=== PATIENT | male | born 1955 | race Caucasian/White ===

== ENCOUNTER 2022-01-28 07:35 | Outpatient (CLI) | payer BC, OTHER | END 2022-01-28 07:36 | disposition home or self-care (01) | LOC: CSHCT 07:35 | PROVIDERS: ATTEND Surgery | DX: K43.9 Ventral hernia without obstruction or gangrene (principal); R91.1 Solitary pulmonary nodule; K57.90 Diverticulosis of intestine, part unspecified, without perforation or abscess without bleeding | CPT/HCPCS: 74176; 74177 ==

== ENCOUNTER 2022-02-15 10:52 | Outpatient (CLI) | payer BC ==
[2022-02-15 13:26] LABS: Anion Gap 15 mmol/L (10-20); BUN (Urea Nitrogen) 17 mg/dL (8.4-25.7); Calc. Creatinine Clearance 0 mL/min (70-130); Calcium 9.4 mg/dL (7.8-10.44); Carbon Dioxide 26 mmol/L (23-31); Chloride 104 mmol/L (98-107); Estimated GFR 68; Glucose 88 mg/dL (80-115); Potassium 4.5 mmol/L (3.5-5.1); Sodium 140 mmol/L (136-145)
== END 2022-02-15 10:53 | disposition home or self-care (01) ==
LOC: CSHLAB 10:52
PROVIDERS: ATTEND Surgery
DX: Z01.818 Encounter for other preprocedural examination (principal); Z20.822 Contact with and (suspected) exposure to COVID-19; K43.9 Ventral hernia without obstruction or gangrene
CPT/HCPCS: 80048; 87811; 93005; 93010

== ENCOUNTER 2022-02-18 06:02 | Day surgery (SDC) | payer BC, OTHER ==
[2022-02-16 16:19] VITALS: BMI 30.1
[2022-02-18] MEDS ORDERED: Lidocaine 1% MPF 2 ML VIAL ONE (07:01)
[2022-02-18] MEDS ORDERED: Bupivacaine PF 0.5% 30 ML VIAL ONE (07:35)
[2022-02-18] MEDS ORDERED: EPINEPHrine 1 MG/ML AMP ONE (07:35)
[2022-02-18] MEDS ORDERED: Lidocaine 1% PF 5 ML VIAL ONE (07:54)
[2022-02-18] MEDS ORDERED: Dexamethasone 4 mg/ml Vial ONE (07:54)
[2022-02-18] MEDS ORDERED: Midazolam HCl 2 mg/2 ml Vial ONE (07:54)
[2022-02-18] MEDS ORDERED: Ondansetron PF 4 MG/2 ML Vial ONE (07:54)
[2022-02-18] MEDS ORDERED: PROPOFOL 20 ML ONE (07:54)
[2022-02-18] MEDS ORDERED: Ketorolac Tromethamine 30 MG/ML VIAL ONE (07:54)
[2022-02-18] MEDS ORDERED: Fentanyl 250 MCG/5 ML VIAL ONE (07:54)
[2022-02-18] MEDS ORDERED: Rocuronium Bromide 10 MG/ML (10ML VIAL) ONE (07:54)
[2022-02-18] MEDS ORDERED: Glycopyrrolate 0.2 MG/ML 5 ML SYRINGE ONE (07:55)
[2022-02-18] MEDS ORDERED: CEFAZOLIN 2 GM VIAL ONE (07:57)
[2022-02-18] MEDS ORDERED: Acetaminophen 325 MG TAB PO PRN (09:16)
[2022-02-18] MEDS ORDERED: HYDROcodone/Acetaminophen 5/325 mg Tablet PO PRN ×2 (09:16)
== END 2022-02-18 10:30 | disposition home or self-care (01) ==
LOC: CSHSDC 06:02
PROVIDERS: ATTEND Surgery
PROC: 0WUF4JZ Supplement Abdominal Wall with Synthetic Substitute, Percutaneous Endoscopic Approach (ICD-10-PCS; principal; 2022-02-18)
DX: K43.9 Ventral hernia without obstruction or gangrene (principal); I10 Essential (primary) hypertension; E78.5 Hyperlipidemia, unspecified; F43.0 Acute stress reaction; J30.9 Allergic rhinitis, unspecified; R73.01 Impaired fasting glucose; N52.9 Male erectile dysfunction, unspecified; E66.9 Obesity, unspecified; Z68.30 Body mass index [BMI] 30.0-30.9, adult; Z79.82 Long term (current) use of aspirin; Z79.899 Other long term (current) drug therapy; Z20.822 Contact with and (suspected) exposure to COVID-19; Z98.890 Other specified postprocedural states
CPT/HCPCS: C1713; J0171; J0690; J1100; J1885; J2250; J2405; J2704; J3010; S0020

== ENCOUNTER 2024-06-12 10:25 | Outpatient (CLI) | payer BC, OTHER ==
[2024-06-12 11:32] LABS: Hematocrit 48.1 % (38.8-50.0); Hemoglobin 16.4 g/dL (13.5-17.5); Mean Corpuscular HGB CONC 34.1 g/dL (32.0-36.0); Mean Corpuscular Hemoglobin 29.9 pg (27.0-33.0); Mean Corpuscular Volume 87.8 fL (81.2-95.1); Mean Platelet Volume 8.2 fL (7.4-10.4); Platelet Count 288 10x3/uL (150-450); RBC Distribution Width 12.5 % (11.5-14.5); Red Blood Cell (RBC) Count 5.48 10x6/uL (4.32-5.72); White Blood Cell (WBC) Count 6.4 10x3/uL (3.5-10.5)
[2024-06-12 12:19] LABS: Anion Gap 16 mmol/L (10-20); BUN (Urea Nitrogen) 11 mg/dL (8.4-25.7); Calc. Creatinine Clearance 0 mL/min (70-130); Calcium 9.3 mg/dL (7.8-10.44); Carbon Dioxide 24 mmol/L (23-31); Chloride 104 mmol/L (98-107); Estimated GFR 60; Glucose 104 mg/dL (80-115); Potassium 4.8 mmol/L (3.5-5.1); Sodium 139 mmol/L (136-145)
== END 2024-06-12 10:26 | disposition home or self-care (01) ==
LOC: CSHLAB 10:25
PROVIDERS: ATTEND Surgery
DX: Z01.818 Encounter for other preprocedural examination (principal); K40.91 Unilateral inguinal hernia, without obstruction or gangrene, recurrent
CPT/HCPCS: 80048; 85027; 93005; 93010

== ENCOUNTER 2024-06-21 06:51 | Day surgery (SDC) | payer BC ==
[2024-06-20 09:08] VITALS: BMI 36.5
[2024-06-21] MEDS ORDERED: PROPOFOL 20 ML ONE (07:46)
[2024-06-21] MEDS ORDERED: Rocuronium Bromide 10 MG/ML (10ML VIAL) ONE (07:46)
[2024-06-21] MEDS ORDERED: Lidocaine 2% PF 5 ML VIAL ONE (07:47)
[2024-06-21] MEDS ORDERED: Bupivacaine HCl 0.5%/Epinephrine 1:200,000/PF 30 ml Vial ONE (08:18)
[2024-06-21] MEDS ORDERED: CEFAZOLIN 2 GM VIAL ONE (08:18)
[2024-06-21] MEDS ORDERED: fentaNYL 50 mcg/mL 1 mL Vial ONE ×3 (08:23→09:55)
[2024-06-21] MEDS ORDERED: Dexamethasone 4 mg/ml Vial ONE (08:58)
[2024-06-21] MEDS ORDERED: Ondansetron PF 4 MG/2 ML Vial ONE (08:58)
[2024-06-21] MEDS ORDERED: Ketorolac Tromethamine 30 MG (1 mL) VIAL ONE (09:45)
[2024-06-21] MEDS ORDERED: SUGAMMADEX SODIUM 200 MG/2 ML VIAL ONE (09:55)
[2024-06-21] MEDS ORDERED: HYDROcodone/Acetaminophen 5/325 mg Tablet ONE (11:18)
== END 2024-06-21 11:40 | disposition home or self-care (01) ==
LOC: CSHSDC 06:51
PROVIDERS: ATTEND Surgery
PROC: 0YUA4JZ Supplement Bilateral Inguinal Region with Synthetic Substitute, Percutaneous Endoscopic Approach (ICD-10-PCS; principal; 2024-06-21)
DX: K40.21 Bilateral inguinal hernia, without obstruction or gangrene, recurrent (principal); I10 Essential (primary) hypertension; E78.5 Hyperlipidemia, unspecified; K21.9 Gastro-esophageal reflux disease without esophagitis; K57.92 Diverticulitis of intestine, part unspecified, without perforation or abscess without bleeding; M10.9 Gout, unspecified; F17.290 Nicotine dependence, other tobacco product, uncomplicated; Z98.890 Other specified postprocedural states; Z79.82 Long term (current) use of aspirin; Z79.899 Other long term (current) drug therapy
CPT/HCPCS: C1781; J1100; J1885; J2405; J2704; J3010; S2900